=== PATIENT | male | born 1955 | race Caucasian/White ===

== ENCOUNTER → 2017-09-10 | Outpatient (REF) | payer OTHER ==
[2017-09-10 17:49] LABS: ESTIMATED AVERAGE GLUCOSE 100 MG/DL (60-110); HEMOGLOBIN A1c 5.1 %
[2017-09-10 17:50] LABS: BASO # 0.1 10^3/uL (0.0-0.2); BASO % 0.6 % (0.0-1.0); EOS # 0.3 10^3/uL (0.0-0.50); EOS % 4.2 % (0.0-3.0); HEMATOCRIT 35.7 % (42.0-52.0); HEMOGLOBIN 11.7 g/dl (13.5-17.5); IMMATURE GRANULOCYTE % 0.4 % (0-3.0); LYMPH % 36.8 % (24.0-44.0); MEAN CORPUSCULAR HEMOGLOBIN 30.4 pg (27.0-33.0); MEAN CORPUSCULAR HGB CONC 32.8 g/dl (32.0-36.5); MEAN CORPUSCULAR VOLUME 92.7 fl (80.0-96.0); MONO # 1.9 10^3/uL (0.0-0.8); MONO % 22.7 % (0.0-5.0); NEUTROPHILS # 2.9 10^3/uL (1.8-7.7); NEUTROPHILS % 35.3 % (36.0-66.0); PLATELET COUNT, AUTOMATED 293 10^3/uL (150-450); RED BLOOD COUNT 3.85 10^6/uL (4.30-6.10); RED CELL DISTRIBUTION WIDTH 12.2 % (11.5-14.5); WHITE BLOOD COUNT 8.2 10^3/uL (4.0-10.0)
[2017-09-10 18:04] LABS: ANION GAP 5 MEQ/L (8-16); BLOOD UREA NITROGEN 7 MG/DL (7-18); CALCIUM LEVEL 9.4 MG/DL (8.8-10.2); CARBON DIOXIDE LEVEL 29 MEQ/L (21-32); CHLORIDE LEVEL 105 MEQ/L (98-107); CREATININE FOR GFR 0.72 MG/DL (0.70-1.30); GLOMERULAR FILTRATION RATE > 60.0 (>49); GLUCOSE, FASTING 87 MG/DL (70-100); POTASSIUM SERUM 4.3 MEQ/L (3.5-5.1); SODIUM LEVEL 139 MEQ/L (136-145)
[2017-09-10 18:05] LABS: ALBUMIN 3.1 GM/DL (3.2-5.2); ALBUMIN/GLOBULIN RATIO 0.74 (1.00-1.93); ALKALINE PHOSPHATASE 75 U/L (45-117); ALT/SGPT 11 U/L (12-78); AST/SGOT 14 U/L (7-37); BILIRUBIN,TOTAL 0.4 MG/DL (0.2-1.0); CHOLESTEROL LEVEL 191 MG/DL (<200); HDL CHOLESTEROL 71 MG/DL (>40); LDL CHOLESTEROL 101.2 MG/DL (<100); NON-HDL-C 120 MG/DL; TOTAL PROTEIN 7.3 GM/DL (6.4-8.2); TRIGLYCERIDES LEVEL 94 MG/DL (<150)
[2017-09-12 15:11] LABS: DEAMIDATED GLIADIN ABS, IgA 11 units (0-19); DEAMIDATED GLIADIN ABS, IgG 3 units (0-19); ENDOMYSIAL ANTIBODY IgA Negative (Negative); IMMUNOGLOBULIN A 487 mg/dL (90-386); t-TRANSGLUTAMINASE(tTG) IgA 3 U/mL (0-3); t-TRANSGLUTAMINASE(tTG) IgG 3 U/mL (0-5)
== END ==
LOC: M SFHCPLAZ 15:16
DX: L13.0 Dermatitis herpetiformis (principal); C32.9 Malignant neoplasm of larynx, unspecified

== ENCOUNTER → 2017-11-12 | Outpatient (CLI) | payer OTHER | LOC: M ONCR 13:16 | DX: C32.9 Malignant neoplasm of larynx, unspecified (principal) | CPT/HCPCS: 99201 ==

== ENCOUNTER 2017-12-01 13:54 | Outpatient (RCR) | payer OTHER | END 2017-12-05 | LOC: M ONCR 13:54 | DX: C32.9 Malignant neoplasm of larynx, unspecified (principal) | CPT/HCPCS: 77334 ==

== ENCOUNTER 2017-12-08 13:31 | Outpatient (RCR) | payer OTHER | END 2018-01-05 | LOC: M ONCR 13:31 | DX: C32.9 Malignant neoplasm of larynx, unspecified (principal) | CPT/HCPCS: 77300 ==

== ENCOUNTER → 2017-12-23 | Outpatient (CLI) | payer OTHER ==
[2017-12-23 15:42] LABS: HEMATOCRIT 33.2 % (42.0-52.0); MEAN CORPUSCULAR HEMOGLOBIN 29.6 pg (27.0-33.0); MEAN CORPUSCULAR HGB CONC 33.1 g/dl (32.0-36.5); MEAN CORPUSCULAR VOLUME 89.2 fl (80.0-96.0); PLATELET COUNT, AUTOMATED 224 10^3/uL (150-450); RED BLOOD COUNT 3.72 10^6/uL (4.30-6.10); RED CELL DISTRIBUTION WIDTH 14.1 % (11.5-14.5); WHITE BLOOD COUNT 5.9 10^3/uL (4.0-10.0)
== END ==
LOC: M LAB 14:19
DX: C32.9 Malignant neoplasm of larynx, unspecified (principal)
CPT/HCPCS: 85027

== ENCOUNTER 2018-01-06 10:16 | Outpatient (RCR) | payer OTHER | END 2018-02-05 | LOC: M ONCR 10:16 | DX: C32.9 Malignant neoplasm of larynx, unspecified (principal) | CPT/HCPCS: 77300 ==

== ENCOUNTER 2018-03-03 15:43 | Emergency (ER) | payer OTHER | END 2018-03-03 16:39 | disposition left against medical advice (07) | LOC: M ED 15:43 | DX: Z53.21 Procedure and treatment not carried out due to patient leaving prior to being seen by health care provider (principal) ==

== ENCOUNTER → 2018-03-03 | Outpatient (CLI) | payer OTHER | LOC: M ONCR 14:31 | DX: C32.9 Malignant neoplasm of larynx, unspecified (principal); Z93.0 Tracheostomy status; R06.02 Shortness of breath | CPT/HCPCS: 99211 ==

== ENCOUNTER → 2018-05-26 | Outpatient (CLI) | payer OTHER ==
[~2018-05-26] MED LIST: OXYC1SOL3 PO; OXYC5SOL15 PO; SILV1CRE60 TOP
--- NOTE | 2018-05-27 12:54 | RADONC ---
RADIATION ONCOLOGY FOLLOWUP NOTE: DATE: 05/26/2018 CHART NUMBER: [id number] DIAGNOSIS: Squamous cell carcinoma of the larynx. STAGE: IV A,[id number] ECOG PERFORMANCE STATUS: 1 Mr. 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 The patient presents today reporting that he continues to have pain and he is running out of pain medication. He reports that he has had swelling and a 30-pound weight gain. He is complaining of swelling in his face and tenderness. His chest and skin. In addition, the patient reports that he was seen by his head and neck surgeon and underwent laryngoscopic evaluation within the last couple of weeks and was told there is no evidence of recurrent disease. REVIEW OF SYSTEMS: The patient's review of systems is positive for facial swelling, 30-pounds weight gain and general swelling as well as generalized pain all over. He is swallowing, however, and reports that he does use his feeding tube but he is able to get food down. He, of course, still has his trache issues. He denies nausea, vomiting, fevers, chills, night sweats, diplopia, headaches, anxiety, urinary or bowel difficulties or neurological problems. PHYSICAL EXAMINATION: The patient is well-developed, well-nourished white male in no acute distress. He has gained weight since his last visit. HEENT: Exam is normocephalic, atraumatic. Extraocular movements are intact. The patient's skin reveals there is no evidence of radiation change present. There is no moist or dry desquamation. His oral cavity shows no evidence of nodularity or recurrent disease. His tracheostomy appears to be clean and functional. There is no palpable cervical, supraclavicular, infraclavicular or axillary lymphadenopathy present. The remainder of his physical exam remains unchanged. ASSESSMENT: I have set the patient up once again for consultation with the pain clinic. I had made clear to him that we are no longer treating him and therefore I cannot continue to give him pain medications. We have attempted to set him up for pain clinic evaluation in the past which was not followed through on. The patient is scheduled to continue his close followup with his head and neck surgeon, who is doing routine laryngoscopic evaluation. At this time, the patient is clinically JESICA with regards to his cancer and doing quite well. In light of this I have set him up to see me in 6 months for further followup as well. He has also been instructed to feel free to contact my office if I could be of any further assistance to him. Once again I made clear that I cannot be a source of narcotics for this patient and I have encouraged him to go to the pain clinic. I am unsure as to the cause of his continued swelling and other issues. I reviewed a pain medication list that he had with him that was two pages long. There are numerous medications on that I am unsure of the purpose at this point. According to what I am seeing here, the patient has some COPD issues as well as GERD. I see prednisone on his list of medications and I have informed him that some of his medications may be a source of his edema. I have recommended strongly that he see his primary care physician and whichever other physicians have been prescribing him all these medications and see if he can get off some of them. I specifically asked him if he has various diseases such as diabetes, heart disease, kidney failure, hypertension, Parkinsons, various neurological problems, etc., which he denied. I let him know that it is a little unusual to see the patient with this many medication that only has a history of GERD and some early COPD. Again in summary, the patient is continuing his close followup and laryngoscopic evaluation by his head and neck surgeon. I have scheduled the patient see us in 6 months' time and referred him to the pain clinic for further pain management. I have recommended he immediately contact his other physicians to discuss his list of medications and the edema he is experiencing. This is beyond my scope of practice. cc: MD Amrit Morales MD MTDD
== END ==
LOC: M ONCR 14:11
PROVIDERS: ATTEND Radiology Radiation Oncology
DX: Z85.21 Personal history of malignant neoplasm of larynx (principal)

== ENCOUNTER → 2018-11-10 | Outpatient (CLI) | payer OTHER ==
--- NOTE | 2018-11-11 08:04 | RADONC ---
RADIATION ONCOLOGY FOLLOWUP NOTE DATE: 11/10/2018 CHART #: [id number] DIAGNOSIS: Squamous cell carcinoma, larynx. STAGE: IV A, [id number]. ECOG PERFORMANCE STATUS: 1. FOLLOWUP NOTE: Mr. Caro with a diagnosis of squamous cell carcinoma of the larynx was treated postoperatively with his treatments ending on 01/27/2018. He returns today for a followup visit. He continues to have pain in numerous location sites as well as the throat, joints and abdominal area. He has had an endoscopic evaluation (although the patient is unsure exactly when this evaluation took place) and he tells me that there was no evidence of tumor recurrence. He has had no recent radiographic studies. REVIEW OF SYSTEMS: He notes facial swelling and has pain which is generalized. He is able to swallow, but he still uses his feeding tube. He is looking forward to having a prosthesis implanted so that he can talk without the aid of his mechanical device. He denies any nausea, vomiting, coughing, sputum production, diplopia, headaches, anxiety, urinary or bowel problems or neurologic problems. EXAMINATION FINDINGS: The patient is a well-developed, well-nourished male in no acute distress. HEENT: Normocephalic. EOMs intact. PERRLA. Fundi benign. Skin: Some radiation changes are noted, but minimal. There is no moist or dry desquamation. His oral cavity shows evidence of some brownish discoloration of his tongue. Otherwise there is no evidence of recurrent disease. His tracheostomy is clean and functional. There is no palpable peripheral lymphadenopathy noted in the cervical, supraclavicular, axillary or inguinal lymph node chains. The remainder of the physical examination is unchanged. He has experienced a rash involving his legs and his back. He was set up to see a physician in [place], but he feels that traveling that length is prohibitive. He is being followed very, very carefully in [place]. IMPRESSION: JESICA at this time. PLAN: Return to clinic in about 6 months and he should continue close followup care with his other affiliated physicians as per their directions and instructions. The patient would like to have a prescription for some narcotics; however, I do not feel that that is in his best interest at this time as he needs to be set up with either a pain clinic or pain related physician who can control his intake. Thank you for allowing us the opportunity of participation in the joint followup care of this fine gentleman. cc: MD Amrit Morales MD MTDD
== END ==
LOC: M ONCR 12:55
PROVIDERS: ATTEND Radiology Radiation Oncology
DX: C32.9 Malignant neoplasm of larynx, unspecified (principal)

== ENCOUNTER → 2019-05-18 | Outpatient (CLI) | payer OTHER ==
[~2019-05-18] MED LIST changes: +OXYC5SOL11 PO; -OXYC5SOL15 PO
--- NOTE | 2019-05-18 16:23 | RADONC ---
RADIATION ONCOLOGY FOLLOWUP NOTE DATE: 05/18/2019 CHART NUMBER: [id number] DIAGNOSIS: Squamous cell carcinoma of larynx. STAGE: IV A, T4a, N0, M0. ECOG PERFORMANCE STATUS: 1 FOLLOWUP NOTE: Mr. Kirk is a very pleasant 63-year-old white male with the diagnosis of a stage IV A, [id number] squamous cell carcinoma of the larynx who is presenting to us today for routine followup visit 1-1/2 years post completion of external beam radiation therapy. The patient presents today reporting that generally he is doing quite well with no complaints at this time related to his radiation. He reports that he does have some difficulty swallowing but overall is doing well. He is being seen routinely by his head and neck surgeon and has been told he has at this point free of disease. REVIEW OF SYSTEMS: The patient's review of systems is positive for left hip pain, which has been present for about 3 months. He says he has difficulty even getting out of bed. He said the hip pain is quite severe and has not been improving. Apparently, he has had MRIs of the back as well as an x-ray of the hip which was nondiagnostic. The remainder of his review of systems is noncontributory. Denies nausea, vomiting, fevers, chills, night sweats, diplopia, headaches, anxiety or depression, anorexia, weight loss, visual disturbances, chest pain, urinary or bowel difficulties, bone pain, or neurological problems. PHYSICAL EXAMINATION: The patient is a chronically ill-appearing white male in no acute distress. HEENT exam is normocephalic, atraumatic. Extraocular movements are intact. He is status post supraglottic laryngectomy and has a tracheostomy present. His oral cavity reveals no evidence of nodularity, ulceration, recurrent disease. There is no palpable preauricular, cervical, supraclavicular, infraclavicular lymphadenopathy present. His lungs are generally clear to auscultation and percussion. ASSESSMENT: I believe the patient is free of disease at this point with regards to his head and neck region. I am unsure as to the cause of his hip pain, which is being managed by his other physicians. There apparently has never been any MRI however done of the hip itself and in light of the fact that this patient did have a rather advanced malignancy I am ordering an MRI of the left hip and femur to rule out any possible metastatic disease. At this time, in light of my impending correction, I am discharging this patient from my followup except on a p.r.n. basis. The patient has my cell phone number and office number and I will be available to him if I can answer any questions or be of any assistance whatsoever in the meantime. Once again, he will continue his close management and followup with his other physicians. cc: Amrit Nance MD
== END ==
LOC: M ONCR 14:29
PROVIDERS: ATTEND Radiology Radiation Oncology
DX: Z85.21 Personal history of malignant neoplasm of larynx (principal)

== ENCOUNTER → 2019-10-18 | Outpatient (REF) | payer OTHER | LOC: M SFHCDERM 16:15 | PROVIDERS: ATTEND Dermatology | DX: L30.9 Dermatitis, unspecified (principal); Z53.8 Procedure and treatment not carried out for other reasons ==

== ENCOUNTER 2020-02-24 14:27 | Emergency (ER) | payer OTHER ==
[~2020-02-24] VITALS: Ht 167.6 cm; Wt 71.4 kg
[2020-02-24] MEDS ORDERED: NS 1,000 ML IV ONE (18:15)
[2020-02-24 20:27] LABS: BASO % 0.5 % (0.0-1.0); EOS # 0.1 10^3/uL (0.0-0.5); EOS % 1.5 % (0.0-3.0); HEMOGLOBIN 11.8 g/dl (13.5-17.5); LYMPH # 1.1 10^3/uL (1.5-5.0); LYMPH % 12.5 % (24.0-44.0); MEAN CORPUSCULAR HEMOGLOBIN 29.3 pg (27.0-33.0); MEAN CORPUSCULAR HGB CONC 31.9 g/dl (32.0-36.5); MEAN CORPUSCULAR VOLUME 91.8 fl (80.0-96.0); MONO # 1.3 10^3/uL (0.0-0.8); MONO % 14.9 % (0.0-5.0); NEUTROPHILS # 6.2 10^3/uL (1.5-8.5); NEUTROPHILS % 70.3 % (36.0-66.0); PLATELET COUNT, AUTOMATED 390 10^3/uL (150-450); RED BLOOD COUNT 4.03 10^6/uL (4.30-6.10); WHITE BLOOD COUNT 8.9 10^3/uL (4.0-10.0)
[2020-02-24 20:44] LABS: INR 1.09; PROTHROMBIN TIME 14.4 SECONDS (12.5-14.3)
[2020-02-24 20:49] LABS: ALBUMIN 3.4 GM/DL (3.2-5.2); ALT/SGPT 15 U/L (12-78); BILIRUBIN,TOTAL 0.5 MG/DL (0.2-1.0); BLOOD UREA NITROGEN 22 MG/DL (7-18); CALCIUM LEVEL 9.3 MG/DL (8.8-10.2); CARBON DIOXIDE LEVEL 25 MEQ/L (21-32); CHLORIDE LEVEL 106 MEQ/L (98-107); CREATININE FOR GFR 0.98 MG/DL (0.70-1.30); GLOMERULAR FILTRATION RATE > 60.0 (>49); GLUCOSE, FASTING 106 MG/DL (70-100); POTASSIUM SERUM 4.4 MEQ/L (3.5-5.1); SODIUM LEVEL 138 MEQ/L (136-145); TOTAL PROTEIN 7.5 GM/DL (6.4-8.2)
[2020-02-24 20:56] LABS: FREE THYROXINE INDEX 3.4 % (1.4-3.8); THYROID STIMULATING HORMONE 2.75 uIU/ML (0.358-3.740)
[2020-02-24 21:33] VITALS: BP 141/84
--- NOTE | 2020-03-13 11:12 | ER ---
DATE: 02/24/2020 Patient presents with a history of carcinoma of the larynx. Patient had a previous laryngectomy. Patient had been speaking with an electrolarynx until 2 years ago when he had a tracheoesophageal puncture performed. Since then, he has been using that and he is very happy with it. Two days ago, the prosthesis came out. Because of some problems with where he is living, he could not come in until today. Patient came to the emergency department. He apparently had a bit of drainage from the tracheoesophageal (TE) site. He has been eating. Examination today shows that he has a good tracheostoma. At the site of the puncture, it appears to be totally closed off. I did probe it with a hard probe and the soft dilator and I was unable to pass anything through the tracheoesophageal puncture site so it had completely closed off. Because of this, my instructions to the patient were that he should return to the place where the puncture had been placed so they can repeat the procedure. FLAVIO
== END 2020-02-24 21:36 | disposition home or self-care (01) ==
LOC: M ED 14:27 → EDBD 14:27 → M ED 21:36
DX: J95.00 Unspecified tracheostomy complication (principal); C32.9 Malignant neoplasm of larynx, unspecified; Z87.891 Personal history of nicotine dependence

== ENCOUNTER → 2021-06-27 | Outpatient (REF) | payer OTHER | LOC: M LAB REF 17:04 | PROVIDERS: ATTEND Dermatology | DX: L28.0 Lichen simplex chronicus (principal) ==

== ENCOUNTER → 2021-11-14 | Outpatient (CLI) | payer OTHER ==
[2021-11-14 14:47] LABS: HEMATOCRIT 33.5 % (42.0-52.0); HEMOGLOBIN 10.6 g/dl (13.5-17.5); MEAN CORPUSCULAR HEMOGLOBIN 29.5 pg (27.0-33.0); MEAN CORPUSCULAR HGB CONC 31.6 g/dl (32.0-36.5); MEAN CORPUSCULAR VOLUME 93.3 fl (80.0-96.0); PLATELET COUNT, AUTOMATED 297 10^3/uL (150-450); RED BLOOD COUNT 3.59 10^6/uL (4.30-6.10); WHITE BLOOD COUNT 7.8 10^3/uL (4.0-10.0)
[2021-11-14 15:28] LABS: ALBUMIN 3.3 GM/DL (3.2-5.2); ALT/SGPT 11 U/L (12-78); BILIRUBIN,TOTAL 0.5 MG/DL (0.2-1.0); BLOOD UREA NITROGEN 14 MG/DL (7-18); CALCIUM LEVEL 9.1 MG/DL (8.8-10.2); CARBON DIOXIDE LEVEL 23 MEQ/L (21-32); CHLORIDE LEVEL 109 MEQ/L (98-107); CREATININE FOR GFR 0.81 MG/DL (0.70-1.30); GLOMERULAR FILTRATION RATE > 60.0 (>49); GLUCOSE, FASTING 78 MG/DL (70-100); POTASSIUM SERUM 4.6 MEQ/L (3.5-5.1); SODIUM LEVEL 140 MEQ/L (136-145); TOTAL PROTEIN 6.9 GM/DL (6.4-8.2)
== END ==
LOC: M LAB 14:17
PROVIDERS: ATTEND Dermatology
DX: L30.9 Dermatitis, unspecified (principal)

== ENCOUNTER → 2022-03-28 | Outpatient (REF) | payer OTHER | LOC: M SFHCDERM 16:29 | PROVIDERS: ATTEND Dermatology | DX: L13.0 Dermatitis herpetiformis (principal) ==

== ENCOUNTER 2022-07-11 13:05 | Day surgery (SDC) | payer OTHER ==
[~2022-07-11] VITALS: Ht 167.6 cm; Wt 68.0 kg
[~2022-07-11 13:05] MED LIST changes: +ACET-1349 PEG; +ACET-907 PEG; +ATOR40TA75 PEG; +BENA25CA4 PO; +BUSP10TA PEG; +CETI-24 PO; +DOCU5LIQ PEG; +DUPI300P SC; +ECOT81TA5 PEG; +FENT100D25 TOP; +FOLI1TAB11 PEG; +FURO40TA2 PEG; +HYDR-4571 PEG; +HYDR50TA70 PEG; +IPRA0.00 INH; +LANS30CA93 PEG; +LEVO88TA3 PEG; +MAGN400T33 PEG; +MELA5TAB11 PEG; +METO50TA7 PEG; +MILKSUS3 PO; +NS 1,000 ML IV ONE; +OLAN2.5T25 PEG; +ONDA4TAB6 PEG; +POTA20EL PEG; +STIO1AER INH; +SUCR1TAB56 PEG; +TACR0.1O TOP; +TIZA10TA PEG; +VITA-243 PO; +WELL1000 PEG
[2022-07-11] MEDS ORDERED: propofoL 200 MG/20 ML VIAL As Ordered ONE ×2 (13:50→14:12)
[2022-07-11] MEDS ORDERED: fentaNYL 100 MCG/2 ML INJECTION As Ordered ONE (13:50)
[2022-07-11] MEDS ORDERED: LIDOCAINE 2% 100MG/5ML SDV (FOR ANES.) As Ordered ONE (13:50)
[2022-07-11 14:43] VITALS: BP 142/86
== END 2022-07-11 14:46 | disposition home or self-care (01) ==
LOC: M OPP 13:05
PROVIDERS: ATTEND Internal Medicine Gastroenterology
DX: K94.23 Gastrostomy malfunction (principal); D72.820 Lymphocytosis (symptomatic); Z98.890 Other specified postprocedural states; R76.8 Other specified abnormal immunological findings in serum; K90.0 Celiac disease; Z85.21 Personal history of malignant neoplasm of larynx; Z79.02 Long term (current) use of antithrombotics/antiplatelets; Z79.82 Long term (current) use of aspirin; Z79.890 Hormone replacement therapy; Z79.891 Long term (current) use of opiate analgesic; Z79.899 Other long term (current) drug therapy; Z88.1 Allergy status to other antibiotic agents; Z88.6 Allergy status to analgesic agent; D64.9 Anemia, unspecified; E78.00 Pure hypercholesterolemia, unspecified; E03.9 Hypothyroidism, unspecified; Z76.89 Persons encountering health services in other specified circumstances
CPT/HCPCS: 43239; 43246; 87635; 88305; J3010